=== PATIENT | male | born 1980 | race African-American/Black ===

== ENCOUNTER 2017-02-18 01:54 | Emergency (ER) | payer OTHER ==
[~2017-02-18] VITALS: Ht 177.8 cm; Wt 79.8 kg
[~2017-02-18 01:54] MED LIST: ALBU18
[2017-02-18 01:59] VITALS: BP 171/126
[2017-02-18] MEDS ORDERED: ALBUTEROL SULF 2.5 MG/0.5ML(0.5%) NEB SOLN NEB ONE ×2 (02:00→02:45)
[2017-02-18] MEDS ORDERED: IPRATROPIUM BROM 0.5 MG/2.5ML INH SOL NEB ONE (02:00)
[2017-02-18] MEDS ORDERED: predniSONE 20 MG TAB PO ONE ×2 (02:45)
== END 2017-02-18 03:28 | disposition home or self-care (01) ==
LOC: ER 02:02
DX: J45.901 Unspecified asthma with (acute) exacerbation (principal); I10 Essential (primary) hypertension
CPT/HCPCS: 36569; 71010; 94640; 99284; C1751; J7050; J7512

== ENCOUNTER 2018-07-15 18:09 | Emergency (ER) | payer SELFPAY ==
[~2018-07-15] VITALS: Ht 177.8 cm; Wt 86.2 kg
[2018-07-15] MEDS ORDERED: cloNIDine HCL 0.1 MG TAB ONE (18:36)
[2018-07-15] MEDS ORDERED: ALBUTEROL SULF 2.5 MG/0.5ML(0.5%) NEB SOLN NEB ONE (18:45)
[2018-07-15] MEDS ORDERED: cloNIDine HCL 0.1 MG TAB PO ONE (18:45)
[2018-07-15] MEDS ORDERED: IPRATROPIUM BROM 0.5 MG/2.5ML INH SOL NEB ONE (18:45)
[2018-07-15] MEDS ORDERED: IPRATROPIUM BROM 0.5 MG/2.5ML INH SOL HHN ONE (21:00)
[2018-07-15] MEDS ORDERED: ALBUTEROL SULF 2.5 MG/0.5ML(0.5%) NEB SOLN HHN ONE (21:00)
[2018-07-15] MEDS ORDERED: methylPREDNISolone SOD SUCC 125 MG/2 ML VL IV ONE (21:00)
[2018-07-15 22:13] LABS: Basophils # (auto) 0 uL; Basophils % (auto) 0.8 % (0.0-2.0); Eosinophils # (auto) 0.7 uL; Eosinophils % (auto) 12.6 % (0.0-7.0); Hematocrit 48.9 % (41.0-53.0); Hemoglobin 16.5 g/dL (13.5-17.5); Lymphocytes # (auto) 2.3 uL; Lymphocytes % (auto) 39.7 % (10.0-50.0); Mean Corpuscular Hemoglobin 29.2 pg (28.0-32.0); Mean Corpuscular Hgb Conc. 33.7 g/dL (32.0-36.0); Mean Corpuscular Volume 86.5 fL (80.0-100.0); Monocytes # (auto) 0.6 uL; Monocytes % (auto) 9.6 % (0.0-12.0); Neutrophils # (auto) 2.2 uL; Neutrophils % (auto) 37.3 % (37.0-80.0); Nucleated Red Blood Cells % 0.3 %; Platelet Count (auto) 277 10^3/uL (140-450); Red Blood Cells 5.65 10^6/uL (4.5-5.90); Red Cell Distribution Width 13.7 % (11.8-14.3); White Blood Cell 5.8 10^3/uL (4.4-10.8)
[2018-07-15 22:16] VITALS: BP 152/92
[2018-07-15] MEDS ORDERED: predniSONE 20 MG TAB ONE (23:30)
[2018-07-16] MEDS ORDERED: predniSONE 20 MG TAB PO ONE
== END 2018-07-15 23:27 | disposition home or self-care (01) ==
LOC: ER 18:24
DX: J45.901 Unspecified asthma with (acute) exacerbation (principal); I10 Essential (primary) hypertension
CPT/HCPCS: 36415; 71045; 85025; 94640; 94761; 99284; J7512; J7611; J7644